=== PATIENT | female | born 1935 | race Caucasian/White ===

== ENCOUNTER 2016-04-28 13:40 | Emergency (ER) | payer MEDICAID, MEDICARE, OTHER ==
[2016-04-28] MEDS ORDERED: Sodium Chloride 0.9% 10 ML Syringe FLUSH PRN (13:55)
[2016-04-28 14:07] VITALS: BP 132/62
[2016-04-28] MEDS ORDERED: Rocuronium 50 MG/5 ML Vial ONE (14:29)
[2016-04-28] MEDS ORDERED: Succinylcholine 200 MG/10 ML MDV IV ONE (14:39)
[2016-04-28] MEDS ORDERED: Rocuronium 50 MG/5 ML Vial IVPUSH ONE (14:51)
[2016-04-28 15:09] LABS: CHLORIDE,CL 80 mmol/L (98-107)
[2016-04-28 15:10] LABS: SODIUM,NA 113 mmol/L (136-145)
[2016-04-28] MEDS ORDERED: Piperacillin/Tazobactam 3.375 GM in Sodium Chloride 0.9% 100 ML IV ONE (15:10)
[2016-04-28] MEDS ORDERED: Lidocaine 2% 5 ML SDV INJECT ONE (18:10)
[2016-04-28] MEDS ORDERED: fentaNYL 100 MCG/2 ML SDV IVPUSH ONE (18:12)
[2016-04-28] MEDS ORDERED: Etomidate 2 MG/ML 10 ML SDV IVPUSH ONE (18:13)
[2016-04-28] MEDS ORDERED: Midazolam 1 MG/ML 2 ML SDV IVPUSH PRN (18:15)
--- NOTE | 2016-04-29 01:37 | ER ---
Date of Service: 04/28/2016 SUBJECTIVE: Laura presents to the emergency room with decreased level of consciousness. The patient is a resident at the [facility] and was recently treated for urinary tract infection. She was found to be experiencing a mental status change and was subsequently sent to the [facility] for evaluation. On arrival to the ER, the patient was unresponsive and the patient was brought to the emergency room for my evaluation and treatment. Staff states that she is currently on a course of Bactrim for her urinary tract infection. She does have a history of atrial fibrillation and DVT and is currently anticoagulated. She offered no complaints of headache or other, and staff stated that she offered were really no complaints prior to this event. A friend of her's is [id number]. The friend states that she is a code level 1 and does wish for intubation and resuscitation should the need arise. PAST MEDICAL HISTORY: 1. Schizophrenia. 2. Dementia. 3. Major depressive disorder. 4. Hypertension. 5. Hypothyroidism. 6. Osteoporosis. 7. Hyperlipidemia. 8. DVT. 9. Urinary incontinence. 10.Chronic rhinitis. 11.Atrial fibrillation. 12.Impaired fasting blood glucose. 13.Generalized weakness. MEDICATIONS: 1. Aspirin 325 mg by mouth daily. 2. Ativan 1 mg by mouth every 6 hours as needed for anxiety. 3. Bactrim DS 1 tablet by mouth 2 times daily for UTI. 4. Bisacodyl suppository 10 mg, insert 1 rectally every 24 hours. 5. Calcium plus D one by mouth 2 times a day. 6. Multivitamin 1 daily. 7. Desmopressin 0.2 mg 3 tablets by mouth once daily. 8. Cardizem ER 240 mg extended release tablet 1 once daily. 9. Effexor XR 225 mg one q.24 hours. 10.Forteo injection. 11.Guaifenesin syrup as needed. 12.Ibuprofen as needed. 13.Ipratropium bromide nebulizer, one dose inhaled by nebulizer q.24 hours as needed for dyspnea. 14.Warfarin managed by the [facility]. 15.Xopenex 1.25 mg 1 dose inhaled orally every 24 hours. 16.Levothyroxine 150 mcg daily. 17.Lisinopril 10 mg daily. 18.Loratadine 10 mg once daily. 19.Metoprolol tartrate 50 mg by mouth once daily. 20.Milk of magnesia p.r.n. 21.Risperdal 2 mg by mouth 3 times a day. 22.Seroquel 50 mg 1 tablet by mouth 4 times a day. ALLERGIES: NKDA. REVIEW OF SYSTEMS: Unobtainable. PHYSICAL EXAMINATION: General: This is an 80-year-old female patient, who is alert to painful stimuli. Vital Signs: Initially, blood pressure was 132/62, heart rate was 70, temperature is 35.4, respiratory rate was 11, O2 saturation 94% on 3 L oxygen per nasal cannula. Skin: Warm, pink, and dry. HEENT: Head is normocephalic, atraumatic. Eyes, PERRLA, sluggish to react. Mouth, oral mucosa is dry. No erythema or exudate noted at the hypopharynx. Neck: Supple without masses. There is no lymphadenopathy. Lungs: Diminished in the bases. Heart: Regular rate and rhythm. Abdomen: Soft and nontender. There is no hepatosplenomegaly noted. There are no masses noted. Extremities: Without edema. Neurologic: Again, the patient is unresponsive except to painful stimuli. Eleanor Coma Scale approximately 6-7. Remainder of her physical examination is within normal limits. LABORATORY DATA: WBC is 12.8, hemoglobin is 11.9, platelets are 337. Coags; PT is 19.8, INR is 1.7. ABGs; pH is 7.43, pCO2 is 32, bicarb is 23, CO2 is 24, O2 saturations 97% on 0.21 FiO2. Chemistry; sodium is 113, potassium is 6.0, chloride is 80, bicarb is 26, BUN is 16, creatinine is 1.3, GFR is 39, glucose is 173, lactic acid is 2.0, calcium is 8.9, corrected calcium is 9.16. Total bilirubin is 0.6, AST is 18, ALT is 29, alkaline phosphatase is 121. CK is 48, CK-MB is 0.6, troponin is less than 0.017. C-reactive protein is 1.7, total protein is 7.3, albumin is 3.3. TSH is 5.518. Portable chest x-ray and post intubation chest x-ray did reveal what appeared to be some infiltrate to the right and left lower lobes as well as the right middle lobe. CT scan of the patient's brain was obtained and was negative for acute pathology. EMERGENCY ROOM COURSE: The patient was experiencing sonorous respirations and was not maintaining her O2 saturation. She was appeared to be aspirating on her own secretions, so decision was made to intubate the patient. The patient was premedicated with 100 mg of lidocaine before CT results were available in the event that she did have an acute brain bleed. The patient was then given 100 mcg of fentanyl IV, 20 mg of etomidate IV and 120 mg of succinylcholine IV. Intubation was performed with a 7.0 ET tube on the second attempt. Direct visualization of the tube entering between the cords was achieved. Breath sounds were noted bilaterally post intubation with no sound over the epigastrium. End-tidal CO2 was in the mid 30s range after intubation. She maintained O2 saturations at 100% on FiO2 at 50%. Ventilator settings were mode of assist control 50% FiO2, rate of 12, tidal volume of 500 with PEEP of 5. A Hernandez catheter was placed. The patient was started on Zosyn 3.375 mg IV. She was given a total of 1 L of normal saline and was maintaining blood pressures in the 120s to 130s range over 60s to 70s. She remained stable in my care in the emergency room. ASSESSMENT: I has subsequently spoke with Dr. Dill, the gre instructor at [facility]. He accepts the patient in transfer. The patient will be transported by [facility] ground ambulance. The patient was given 50 mg of rocuronium and 2 mg of Versed for sedation. All questions were answered. The patient is a code level 1. MWK: 04/28/2016 15:34:28 MODL: 04/29/2016 01:33:40 /[id number]
--- NOTE | 2016-05-04 08:27 | ER ---
Date of Service: 04/28/2016 ADDENDUM: ASSESSMENT: Respiratory failure secondary to sepsis and hyponatremia. MWK: 05/04/2016 07:45:05 MODL: 05/04/2016 08:06:20 /[id number]
== END 2016-04-28 15:45 | disposition short-term general hospital (02) ==
LOC: VM.ED 13:40
DX: I10 Essential (primary) hypertension (principal); E03.9 Hypothyroidism, unspecified; E78.5 Hyperlipidemia, unspecified; I48.91 Unspecified atrial fibrillation; Z79.82 Long term (current) use of aspirin; M81.0 Age-related osteoporosis without current pathological fracture
CPT/HCPCS: 31500; 36415; 36600; 51702; 70450; 71010; 80053; 81001; 82550; 82553; 82803; 83605; 84443; 84484; 85025; 85610; 86140; 87040; 87804; 93005; 94002; 96361; 96365; 96375; 99285; J0330; J2250; J2543; J3010; J7050; 94760

== ENCOUNTER 2016-05-13 16:01 | Emergency (ER) | payer MEDICARE, OTHER ==
--- NOTE | 2016-05-13 16:20 | EDM.PDOC ---
ED HISTORY OF PRESENT ILLNESS - General Chief Complaint: Syncope Stated Complaint: passed out at NH when was being assisted to stand up and transfer Time Seen by Provider: 05/13/16 16:13 Source of Information: Reports: EMS, Family, [facility] records History Limitations: Reports: Other (PT secondary to a prior stroke and dysphasia will answer some questions in 02 name and location) - History of Present Illness Timing/Duration: Reports: Minutes: Quality: Reports: Other (PT denies any pain anywhere) Associated Symptoms (General): Reports: syncope. Denies: confusion, chest pain , cough, diaphoresis, fever/chills, headaches, loss of appetite, nausea/vomiting , seizure, shortness of breath, weakness - Related Data Allergies/ADRs: Allergies Allergy/AdvReac Type Severity Reaction Status Date / Time No Known Allergies Allergy Verified 05/13/16 17:14 Home Meds: Home Meds Acetaminophen 650 mg PO TID PRN 05/13/16 [History] Aspirin/Calcium Carbonate/Mag [Aspirin Buffered 325 mg Tab] 325 mg PO DAILY [History] Bacitracin 1 gm OP Q12H PRN 05/13/16 [History] Bisacodyl [Dulcolax] 10 mg RECTAL DAILY PRN 05/13/16 [History] Calcium Carbonate/Vitamin D3 [Calcium 1,000 + D3 Caplet] 1 each PO BID 05/13/16 [History] Dextran 70/Hypromellose [Artificial Tears] 1 drop EYEBOTH Q4H PRN 05/13/16 [ History] Diltiazem HCl [Diltiazem 24Hr Cd] 240 mg PO DAILY 05/13/16 [History] LORazepam [Ativan] 1 mg PO Q6H PRN 05/13/16 [History] Levalbuterol HCl [Xopenex] 0.31 mg INH Q6H PRN 05/13/16 [History] Levothyroxine 150 mcg PO ACBREAKFAST 05/13/16 [History] Lisinopril 10 mg PO DAILY 05/13/16 [History] Loratadine [Claritin] 10 mg PO DAILY 05/13/16 [History] Magnesium Hydroxide [Milk of Magnesia] 30 ml PO DAILY PRN 05/13/16 [History] Metoprolol Succinate [Toprol XL] 100 mg PO DAILY 05/13/16 [History] Multivitamin [Multivitamins] 1 each PO DAILY 05/13/16 [History] QUEtiapine Fumarate [Seroquel] 50 mg PO QID 05/13/16 [History] Venlafaxine [Effexor XR] 150 mg PO DAILY 05/13/16 [History] Warfarin [Coumadin] 1 mg PO DAILY 05/13/16 [History] guaiFENesin 200 mg PO Q4H PRN 05/13/16 [History] risperiDONE [Risperdal] 2 mg PO TID 05/13/16 [History] Past Medical History Genitourinary History: Reports: UTI, recurrent Social & Family History - Tobacco Use Smoking Status *Q: Unknown Ever Smoked ED ROS GENERAL - Review of Systems Review Of Systems: See Below Constitutional: Denies: fever, chills, malaise, weakness, fatigue, diaphoresis HEENT: Reports: No symptoms Respiratory: Reports: No Symptoms. Denies: Shortness of Breath, Pleuritic Chest Pain, Cough Cardiovascular: Reports: No symptoms, Syncope. Denies: Chest pain, Blood pressure problem, Lightheadedness Endocrine: Reports: no symptoms GI/Abdominal: Reports: No symptoms. Denies: Abdominal pain, Anorexia, Black stool, Bloody stool, Diarrhea : Reports: no symptoms Musculoskeletal: Reports: no symptoms Skin: Reports: no symptoms Neurological: Reports: Syncope. Denies: Confusion, Dizziness, Headache, Trouble Speaking Hematologic/Lymphatic: Reports: no symptoms. Denies: easy bleeding Immunologic: Denies: no symptoms ED EXAM, GENERAL - Physical Exam Exam: See Below Exam Limited By: No limitations General Appearance: alert, WD/WN, no apparent distress, other Eye Exam: bilateral eye: EOMI, PERRL Ears: normal external exam, normal canal, hearing grossly normal Nose: normal inspection, normal mucosa Throat/Mouth: Normal inspection, Normal lips, Normal oropharynx, Normal voice Head: atraumatic, normocephalic Neck: normal inspection, supple, non-tender, full range of motion Respiratory/Chest: no respiratory distress, lungs clear, normal breath sounds, no accessory muscle use, chest non-tender Cardiovascular: normal peripheral pulses, irregularly irregular, other (PT noted to have a regular rate and rhythm 140 beats A. fib). No: regular rate, rhythm, no edema GI/Abdominal: normal bowel sounds, soft, non tender, no organomegaly, no distention, no mass Neurological: alert, oriented, CN II-XII intact, normal cognition, no motor/ sensory deficits ( patient has bilateral lens blank gauger although left is slightly greater than right upper extremity 4 out of lower sternum is graded 3/5 bilateral) Psychiatric: normal affect, normal mood, other (Per family this is her normal baseline) Skin Exam: Warm, Dry, Intact, Normal color, No rash Course - Vital Signs Text/Narrative:: Patient placed on monitor noted to be in afib EKG was ordered CBC BMP PT PTT inr troponin were also ordered On patient's medication list noted in currently L. 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 Weinberg hospitalist at [place] at 1845 we'll except transfer Last Recorded V/S: Last Vital Signs Temp 36.0 C 05/13/16 16:10 Pulse 144 H 05/13/16 18:13 Resp 20 05/13/16 16:10 BP 131/64 05/13/16 18:13 Pulse Ox 96 05/13/16 16:10 - Orders/Labs/Meds Orders: Active Orders 24 hr Category Date Time Status EKG Documentation Completion [RC] STAT Care 05/13/16 16:16 Active Labs: Laboratory Tests 05/13/16 05/13/16 Range/Units 16:29 16:29 WBC 8.6 (4.0-10.0) x10^3/uL RBC 3.86 L (4.00-5.50) x10^6/uL Hgb 10.8 L (12.0-16.0) g/dL Hct 34.8 (33.0-47.0) % MCV 90.2 (78.0-93.0) fL MCH 28.0 (26.0-32.0) pg MCHC 31.0 L (32.0-36.0) g/dL RDW Coeff of Wes 16.2 H (10.0-15.0) % Plt Count 303 (130-400) x10^3/uL Neut % (Auto) 61.7 (50.0-80.0) % Lymph % (Auto) 16.6 L (25.0-50.0) % Summit % (Auto) 18.2 H (2.0-11.0) % Eos % (Auto) 3.4 (0.0-4.0) % Baso % (Auto) 0.1 L (0.2-1.2) % Sodium 143 (136-145) mmol/L Potassium 4.4 (3.5-5.1) mmol/L Chloride 108 H (98-107) mmol/L Carbon Dioxide 21 (21-32) mmol/L BUN 42 H (7-18) mg/dL Creatinine 2.3 H (0.55-1.02) mg/dL Est Cr Clr Drug Dosing TNP Estimated GFR (MDRD) 20 Glucose 135 H (74-106) mg/dL Calcium 9.1 (8.5-10.1) mg/dL Troponin I < 0.017 (<=0.056) ng/mL Meds: Medications Discontinued Medications Generic Name Dose Route Start Last Admin Trade Name Freq PRN Reason Stop Dose Admin Sodium Chloride 1,000 mls @ 250 mls/hr 05/13/16 17:30 05/13/16 17:38 Normal Saline IV 250 mls/hr ASDIRECTED GRACE Administration Metoprolol Succinate 50 mg 05/13/16 17:30 05/13/16 17:37 Toprol Xl PO 50 mg DAILY GRACE Administration Departure - Departure Time of Disposition: 18:15 Disposition: DC/Tfer to [facility] Reason for Transfer *Q: Other (Higher level of care) Condition: good Clinical Impression: Chronic a-fib, Cardiac related syncope Instructions: Syncope, [id number] Referrals: Naz Edwards MD [Primary Care Provider] - Forms: ED Department Discharge, Interfacility Transfer EMTALA - My Orders Last 24 Hours: My Active Orders 05/13/16 16:16 EKG Documentation Completion [RC] STAT - Assessment/Plan Last 24 Hours: My Active Orders 05/13/16 16:16 EKG Documentation Completion [RC] STAT
[2016-05-13 16:56] LABS: CHLORIDE,CL 108 mmol/L (98-107); SODIUM,NA 143 mmol/L (136-145)
[2016-05-13] MEDS ORDERED: Sodium Chloride 0.9% 1,000 ML IV SCH (17:30)
[2016-05-13] MEDS ORDERED: Metoprolol Succinate 50 MG Tab.ER PO SCH (17:30)
== END 2016-05-13 20:07 | disposition critical access hospital (66) ==
LOC: VM.ED 16:01
DX: R55 Syncope and collapse (principal); I48.2 Chronic atrial fibrillation; Z79.899 Other long term (current) drug therapy
CPT/HCPCS: 36415; 80048; 84484; 85025; 93005; 96365; 96366; 99285; A9270; J7030